=== PATIENT | male | born 1950 | race Caucasian/White ===

== ENCOUNTER 2017-01-15 05:13 | Inpatient (IN) | payer OTHER, MEDICARE ==
--- NOTE | 2017-01-14 08:42 | MH ---
cc: KAITLIN DAVIS DATE OF ADMISSION 01/15/2017 ADMITTING DIAGNOSIS Complete rotator cuff tear of the left shoulder, glenohumeral arthrosis left shoulder, acromioclavicular arthrosis left shoulder, effusion left shoulder, pain left shoulder. HISTORY OF THE PRESENT ILLNESS The patient is a 66-year-old white male who has experienced pain about the left shoulder of at least 6 months duration. He had associated the onset of his symptoms with a lifting type stress when he was picking up luggage and experienced a popping sensation about the left shoulder and the onset of soreness thereafter. He initially conformed to conservative management but noted lingering pain that he exacerbated a few weeks thereafter when he fell out of bed with blunt trauma to the shoulder area occurring. He applied a topical agent with minimal benefit being experienced and later underwent evaluation at a [facility] where initial x-ray studies were without evidence of acute bony abnormality. Mild degenerative changes of the AC joint and the glenohumeral joint were reported. The patient was prescribed physical therapy that he attended on a routine basis without any appreciable benefit of his pain being noted. He also underwent an ultrasound of his left arm with findings of an intact but dislocated long head of the biceps tendon that was felt to be indicative of a partial subscapularis tear. The remaining portion of his cuff was described as being intact. The patient later underwent orthopedic evaluation with an MRI scan of his left shoulder being completed the results of which identified a full-thickness distal supraspinatus tendon tear measuring approximately 2.7 cm in medial to lateral dimension and 1.7 in the anterior posterior dimension. Moderately severe distal infraspinatus and subscapularis tendinosis with severe proximal biceps tendinosis. Moderately severe acromioclavicular joint arthrosis with a moderate size glenohumeral joint effusion communicating with the subacromial bursa. There was a large tear involving the superior, posterior and inferior aspect of the labrum. The patient subsequently presented to the undersigned physician for second opinion evaluation and at that time reported ongoing pain about his left shoulder with limited mobility that was interfering with all activities of daily living. He had been taking ibuprofen in the past that he found to be quite beneficial but had to discontinue the medication secondary to a history of GERD syndrome. He also recently began to take tumeric that he found to afford him some limited benefit with regards to pain relief. Findings and treatment options were reviewed with the patient at that time. The pros and cons of continuing with conservative management versus operative intervention that would involve acromioplasty of the left shoulder with an attempted mini open rotator cuff repair versus reverse shoulder arthroplasty was outlined in detail. The pluses and minuses of each procedure was reviewed. The patient indicated that prior to his office evaluation he had done his own independent research on the internet and was inclined to consider reverse shoulder arthroplasty as being more favorable course of treatment for long-term benefit and expressed his desire to proceed accordingly. In compliance with his wishes he has currently been scheduled for admission in order that the above be accomplished. He is right-hand dominant. PAST MEDICAL HISTORY His past medical history, hospitalizations and surgeries have included: 1. Tonsillectomy. 2. Upper endoscopy. 3. Closed manipulation of a pelvic fracture followed by an extended course of traction therapy. 4. Arthroscopic surgery of the right knee x2. 5. Right total hip arthroplasty. 6. Bilateral cataract excision with subsequent left retinal repair. 7. Dupuytren contracture release of the right hand. 8. Colonoscopy. 9. Excision of warts of the hands bilaterally. 10. Medical management for Campylobacter infection. The patient's medical illnesses include: 1. Dry eye syndrome. 2. Rosacea. 3. Depression. 4. Elevated cholesterol. 5. Gout. 6. Hypertension. 7. Psoriasis. MEDICATIONS His current medications: 1. Restasis 1 drop to each eye twice daily. 2. Doxycycline 100 mg twice daily. 3. Paroxetine 40 mg daily. 4. Niacin 500 mg twice daily. 5. extract 1200 mg twice daily. 6. 25 mg daily. 7. Clobetasol 0.05%. 8. Metoprolol 50 mg twice daily. 9. Terazosin 10 mg daily. 10. Tumeric 2 grams twice daily. 11. Tylenol p.r.n. ALLERGIES THE PATIENT DESCRIBES A DRUG ALLERGY TO COLCHICINE WHICH HAS CAUSED GASTRIC IRRITATIOIN. ZOCOR HAS CAUSED GENERALIZED BODY ACHING. 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 REVIEW OF SYSTEMS He does wear glasses. Denies headache, seizure or syncope. Occasional sinus congestion. There is a history of epistaxis in the past treated by cauterization. Auditory acuity intact. No tinnitus. No bleeding gums or dysphagia. Denies cough, shortness of breath, upper respiratory infection, pneumonia or tuberculosis. No angina. He is medically managed for hypertension. His appetite is good. Bowel movements are regular. No hepatitis, gallbladder disease, ulcers. He has a history of hemorrhoids. No urinary tract infection. No kidney stones. No active prostate disease. Pelvic fracture as described. Psychiatric treatment for depression and posttraumatic stress disorder. Remaining review of systems is unremarkable and noncontributory. FAMILY HISTORY The patient has been for over 40 years. He has no children. His family history is positive for hypertension, diabetes, heart disease, breast and skin cancer and rheumatoid arthritis. 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 He completed a high school education with college credits thereafter. He admits to an intermittent use of tobacco for at least 50 years currently smoking approximately 10 cigarettes per day. Ethanol consumption on a rare basis. PHYSICAL EXAMINATION VITAL SIGNS: Height 6 feet 2 inches, weight 256 pounds. GENERAL: An alert, oriented responsive 66-year-old white male who sits quietly upon the examination table with no obvious distress. HEENT: Head, ears, eyes, nose and throat, pupils are equally round and reactive to light. Extraocular movements full. Sclerae clear. External nares clear. External auditory canals clear. Dental intact. Mucous membranes pink and moist. Pharynx clear. NECK: Supple. Active range of motion without appreciable pain. Carotid pulse palpable bilaterally. Trachea midline. Thyroid without enlargement. LUNGS: Clear to auscultation and percussion. No CVA tenderness. No discomfort throughout the dorsal lumbar spine. HEART: Regular rhythm. No murmur or gallop. ABDOMEN: Soft, nontender. Bowel sounds present. RECTAL: Per primary care physician. EXTREMITIES: Left shoulder, there is mild tenderness about the anterior aspect of the shoulder directly overlying the bicipital groove without palpable deformity. There is limited mobility of the shoulder as the patient actively attempts to elevate his hand above his head level in a forward orientation with limitation observed at approximately 60 degrees of forward flexion. Internal rotation is accomplished to the lumbosacral junction. Cross-arm positioning of left hand onto right shoulder unremarkable. No sensation of crepitation about the glenohumeral joint. Drop arm test is positive. French sign positive. Weakness of both internal and external rotation. Hydroelectric Operator strength intact. Sensory intact. NEUROLOGIC: Cranial nerves II-XII grossly intact. IMPRESSION Complete rotator cuff tear left shoulder, glenohumeral arthrosis left shoulder, acromioclavicular arthrosis left shoulder, effusion left shoulder, pain left shoulder. PLAN Left reverse shoulder arthroplasty. The nature of the planned surgical procedure, the potential complications and risks associated, the expectations of surgery and the consent form were thoroughly reviewed with the patient prior to admission to the hospital. Kolton has indicated his full understanding regarding all of the above and given consent to proceed with treatment as outlined. Medical evaluation and clearance for surgery will be completed by his primary care physician Dr. Kolton Stallings. MD MIREYA More/KK /3:46 PM /8:38 AM
[~2017-01-15] VITALS: Ht 185.4 cm; Wt 118.0 kg
[~2017-01-15 05:13] MED LIST: ARTH650T6 PO; CHLO25TA2 PO; CLOB0.055 TOPICAL; CURCPOW PO; DOXY100C35 PO; FLUO40CA PO; METO50TA PO; NIAC500T67 PO; PANT40TA3 PO; RANI150T PO; REST0.05 EACH EYE; TERA2CAP3 PO; [UNRECOGNIZED DRUG - CODE] PO
[2017-01-15] MEDS ORDERED: CHLORHEXIDINE GLUCONATE 2 % 1 PACK (2 CLOTHS) TOPICAL PRN (05:45)
[2017-01-15] MEDS ORDERED: POVIDONE IODINE 7.5% SCRUB 118 ML BOTTLE TOPICAL SCH (05:45)
[2017-01-15] MEDS ORDERED: SODIUM CHLORID 0.9% 500 ML IV PRN (05:45)
[2017-01-15] MEDS ORDERED: INSULIN HUMAN REGULAR 1,000 UNITS/10 ML VIAL SQ PRN (05:45)
[2017-01-15] MEDS ORDERED: METOPROLOL TARTRATE 25 MG TAB PO PRN (05:45)
[2017-01-15] MEDS ORDERED: SOUR1000 PO (05:57)
[2017-01-15] MEDS: POVIDONE IODINE 5% (ANTISEPSIS KIT) 4 APPLICATIONS EACH NARE PRN ×2 (06:00→11:11)
[2017-01-15] MEDS ORDERED: ceFAZolin INJ 1,000 MG VIAL ONE (06:17)
[2017-01-15] MEDS ORDERED: FAMOTIDINE 20 MG/2 ML VIAL ONE (06:37)
[2017-01-15] MEDS ORDERED: ACETAMINOPHEN 1000 MG/100 ML 100 ML IV ONE (06:37)
[2017-01-15] MEDS: LACTATED RINGER'S 1000 ML IV PRN ×2 (06:45→11:11)
[2017-01-15] MEDS: ceFAZolin 2 GM PREMIX 50 ML IV SCH ×2 (06:47→11:11)
[2017-01-15] MEDS: TRANEXAMIC ACID 1 GM PRIOR TO PROCEDURE IV SCH ×4 (07:11→11:11)
[2017-01-15] MEDS ORDERED: TRANEXAMIC ACID 1 GM POST-OP IV SCH ×2 (09:00)
[2017-01-15] MEDS ORDERED: Post-op Orders (for Pharmacy) MISC XX ONE (09:56)
[2017-01-15] MEDS ORDERED: DO NOT ADM ANY ANTICOAGULANT DRUGS PRN (09:58)
[2017-01-15] MEDS ORDERED: BUPIVACAINE HCL PF 0.5% 30 ML VIAL ONE (09:58)
[2017-01-15] MEDS ORDERED: ACETAMINOPHEN/HYDROcodone 325 MG/5 MG TAB PO PRN (10:15)
[2017-01-15] MEDS ORDERED: ZOLPIDEM TARTRATE 5 MG TAB PO PRN (10:15)
[2017-01-15] MEDS ORDERED: TRANEXAMIC ACID INJ 1,000 MG in SODIUM CHLORIDE 0.9% INJ 100 ML IV SCH (10:15)
[2017-01-15] MEDS ORDERED: BISACODYL 10 MG SUPP RECTAL PRN (10:15)
[2017-01-15] MEDS ORDERED: SODIUM CHLORIDE 0.9% FLUSH 10 ML FLUSH IV FLUSH PRN (10:15)
[2017-01-15] MEDS ORDERED: NALOXONE HCL 0.4 MG/ML AMP IV PUSH PRN (10:15)
[2017-01-15] MEDS ORDERED: MISCELLANEOUS PHARMACY INFORMATION XX ONE (10:15)
[2017-01-15] MEDS ORDERED: MORPHINE SULFATE 30 MG/30 ML PCA IV SCH (10:15)
[2017-01-15] MEDS ORDERED: ONDANSETRON HCL 4 MG/2 ML VIAL IVP PRN (10:15)
[2017-01-15] MEDS ORDERED: *morphine SULFATE 8 MG/ML PERIprocedure ONLY ONE (10:30)
--- NOTE | 2017-01-15 10:55 | MP ---
cc: KAITLIN HENNING DATE OF SURGERY 01/15/2017 PREOPERATIVE DIAGNOSIS A complete rotator cuff tear of the left shoulder with glenohumeral arthrosis and acromioclavicular arthrosis, effusion left shoulder and pain of the left shoulder POSTOPERATIVE DIAGNOSIS A complete rotator cuff tear of the left shoulder with glenohumeral arthrosis and acromioclavicular arthrosis, effusion left shoulder and pain of the left shoulder PROCEDURE Left reverse shoulder arthroplasty. SURGEON Kaitlin Henning MD ANESTHESIA General endotracheal INDICATIONS A 66-year-old white male with left shoulder pain of at least six months duration. The onset of his symptoms occurred with a lifting type stress when he was picking up luggage and experienced a popping sensation about the left shoulder with the onset of pain thereafter. He initially conformed to conservative management, but noted lingering discomfort that was exacerbated when he fell out of bed with blunt trauma to the shoulder area occurring. He applied a topical agent with minimal benefit experienced and later underwent evaluation at the [facility] facility where x-ray studies were without evidence of acute bony abnormality. Mild degenerative changes of the AC joint and glenohumeral joint were reported. The patient was prescribed physical therapy that he attended on a routine basis without any appreciable benefit of his pain being noted. He also underwent an ultrasound of his left arm with findings being intact, but dislocated long head of the biceps tendon was felt to be indicative of a partial subscapularis tear. The remaining portion of the cuff was described as being intact. The patient later underwent orthopedic evaluation with an MRI scan of the shoulder being completed the results of which identified a full-thickness distal supraspinatus tendon tear measuring approximately 2.7 cm in medial to lateral dimension and 1.7 in anterior to posterior dimension, moderately severe distal infraspinatus and subscapularis tendinosis with severe proximal biceps tendinosis and moderately severe acromioclavicular joint arthrosis with a moderate size glenohumeral joint effusion communicating with the subacromial bursa. There was a large tear involving the superior, posterior, and inferior aspect of the labrum. The patient subsequently was seen by the undersigned physician for a second opinion evaluation and at that time reported ongoing pain about his left shoulder with limited mobility that was interfering with all activities of daily living. He had been taking ibuprofen that he found to be beneficial, but had to discontinue the medication secondary to a history of gastroesophageal reflux disease syndrome. He also recently began to take tumeric that he found to afford him some limited benefit. Findings and treatment options were reviewed with the patient at that time. The pros and cons of continuing with conservative management versus operative intervention that would involve an acromioplasty of the left shoulder was then attempted and an open rotator cuff repair versus reverse shoulder arthroplasty was outlined. The pluses and minuses of each procedure was reviewed. The patient indicated that prior to his office evaluation, he had done his own independent research on the internet and was inclined to consider reverse shoulder arthroplasty as being a more favorable course of treatment for long-term benefit and expressed his desire to proceed accordingly. In compliance with his wishes, he was currently admitted to the hospital in order that the above be accomplished. FORMAT Following the induction of satisfactory general anesthesia by endotracheal intubation as completed per the Department of Anesthesia, the patient was positioned upon the operating table in a modified beach-chair configuration. The left shoulder and upper extremity proper were isolated with a U-drape thereafter being prepped with Betadine solution and draped into a sterile field in the routine manner. Prior to initiation of the actual procedure, the standard time-out protocol was completed. All parameters were appropriately addressed and confirmed by operating room personnel. A standard anterior approach to the shoulder was initiated through a sharp skin incision overlying the deltopectoral interval being extended from the inferior margin of the clavicle to the axillary crease. The incision was developed through underlying subcutaneous tissue with hemostasis maintained by electrocautery. By deepening dissection, the cephalic vein was identified distally and the interval was developed in a distal to proximal orientation with the vein being reflected in a lateral orientation with the deltoid musculature. Digital release of subdeltoid adhesions was completed and the shoulder thereafter maintained in a slightly externally rotated orientation. The biceps tendon was identified and released proximally. A limited release of the pectoralis major insertion was accomplished and thereafter the biceps tendon was tenodesed to the stump of the pectoralis tendon, the excess portion being excised. As the shoulder was maintained in an externally rotated orientation, the three sister circumflex vessels were identified, clamped and coagulated. Thereafter, the subscapularis tendon was released in a superior to inferior orientation along the orientation of the anatomical neck of the humerus. The more medial segment of the tendon was tagged with #1 Tycron suture. As the tendon was released, the humeral head was delivered into the wound facilitating a 360 degree exposure. A significant central articular full-thickness cartilaginous defect was readily identified. Superiorly adjacent to the bicipital groove, an entry point was initiated into the humeral shaft and sequential rasping was accomplished from 7-14 mm. Broaching followed in a similar manner through 13 mm with the 13 mm stem determined to be a satisfactory fit. The covering plate was positioned over the proximal humerus and attention was thereafter redirected to the glenoid. Retractors were placed anterior, posterior, and superior facilitating exposure. The glenoid labrum and remnants of the superior middle and inferior glenohumeral ligaments were resected. The residual stump of the biceps tendon was resected in a similar manner. With 360 degree orientation exposure of the glenoid, hash boogie were placed from the 12 to 06 o'clock position and in the 3 to 9 o'clock position facilitating central orientation of the glenoid. A guide pin was placed in this central target in a slight 10 degrees inferior tilt utilizing the glenoid guide. With the guide pin maintained, the step-down reamer was passed creating a central peg hole. Limited resection along the inferior margin of the glenoid was accomplished and thereafter a 25 mm mini baseplate was firmly seated. Depth measurement was accomplished facilitating placement of a 35 mm central screw. Peripheral locking screws were placed utilizing 25 mm locking screws superiorly and inferiorly and 15 mm screws anteriorly and posterior. With the baseplate firmly secured in place, a 36 mm glenosphere was attached with maximum inferior offset and firmly seated onto the baseplate. Attention returned to the proximal humerus with a [address], a trial reduction was completed utilizing a 44 x 36 mm trial bearing insert. The shoulder was reduced and carried through a passive range of motion with stability being demonstrated throughout the arc of mobility. An open dislocation was completed. The trial humeral components were removed. The canal was thoroughly irrigated and dried. One additional #1 Tycron suture was passed through the proximal humerus and thereafter the 13 mm mini humeral stem was firmly seated to which a 44-mm humeral tray with a 44 x 36-mm humeral bearing insert attached. An open reduction completed and repeat range of motion again noted stability as previously described. Final irrigation was accomplished with hemostasis maintained. The subscapularis tendon was repaired with #1 Tycron suture. The deltopectoral interval was thereafter closed with a 0 Vicryl suture and the remaining portion of the wound was closed in layers in the routine manner skin margins being reapproximated with a running subcuticular 3-0 Vicryl suture over which Steri-Strips were applied. A dry sterile dressing was placed. The extremity being supported in an arm sling, anesthesia was discontinued. The patient was thus transferred to a hospital bed and returned to recovery room in satisfactory condition having tolerated his operative procedure well. Estimated blood loss was approximately 100 cc. All implants were of the [employer] nuclear control operator. MD MIREYA More/UNIQUE /10:01 AM /10:21 AM
[2017-01-15] MEDS: DEXT 5%-NACL 0.45% 1000 ML INJ 1,000 ML IV SCH ×2 (11:00→21:33)
--- NOTE | 2017-01-15 11:09 | RADRPT ---
EXAM DATE/TIME: 01/15/2017 10:34 [facility] COMPARISON: No previous studies available for comparison. INDICATIONS : Total left shoulder. MEDICAL HISTORY : None. SURGICAL HISTORY : None. ENCOUNTER: Initial ACUITY: 1 day PAIN SCORE: Non-responsive. LOCATION: Left shoulder FINDINGS: Single anterior view of the left shoulder shows reverse configuration total arthroplasty that appears intact and normally aligned. No fracture is seen. CONCLUSION: No acute abnormality demonstrated status post left shoulder arthroplasty. Ricardo Irizarry MD on January 15, 2017 at 11:07 Board Certified Radiologist. This report was verified electronically.
[2017-01-15 12:50] VITALS: BP 110/66; PULSE 70; RESP 18; TEMP 97.6; O2SAT 94
[2017-01-15] MEDS: PCA - TOTAL MG MORPHINE DELIVERED PER SHIFT SCH ×2 (15:05→21:34)
[2017-01-15 16:00] VITALS: BP 122/70; PULSE 73; RESP 18; TEMP 96.4; O2SAT 91
--- NOTE | 2017-01-15 18:05 | PD.CONS ---
HPI Service [facility] Hospitalists Consult Requested By Dr. Henning Reason for Consult Medical Management Primary Care Physician Alberto Garcia MD Diagnoses: History of Present Illness Written by Ari Aguirre, acting as scribe for Dr. Covarrubias on 01/15/17 at 17: 52. Patient is a 66-year-old male with primary medical history of depression, HTN, HLD, psoriasis, dry eyes who came in to the hospital for an elective left shoulder surgery for complete rotator cuff tear of the left shoulder, glenohumeral atherosis left shoulder, acromioclavicular arthrosis left shoulder , effusion left shoulder, pain left shoulder. Patient is status post Left reverse shoulder arthroplasty by Dr. Henning. Laying in bed. States that he had vomited earlier after eating but now he feels okay. Denies any pain or discomfort. Reports his oxygen went down to its Y he is on 3 L nasal cannula and on the O2 sat monitoring but now it's back up to 96%. Denies SOB/ dyspnea. Denies chest pain, palpitations, headaches, dizziness. Denies fevers, chills, diarrhea. Denies dysuria. Review of Systems Except as stated in HPI: all other systems reviewed are Neg Past Family Social History Allergies: Coded Allergies: colchicine (Verified Allergy, Unknown, 01/02/17) simvastatin (Verified Allergy, Unknown, 01/02/17) Past Medical History Dry eyes Psoriasis Gout HTN HLD Clinical depression Past Surgical History Right finger trigger release Colonoscopy with 29 polyps removed Right knee surgery 2 Reported Medications Reported Meds & Active Scripts Active Restasis Opth 0.05% (Cyclosporine Opth 0.05%) 0.05% Emul 1 Drop EACH EYE BID Fluoxetine (Fluoxetine HCl) 40 Mg Cap 40 Cap PO DAILY Reported Tart Melvin Extract (Sour Melvin Extract) 1,000 Mg Capsule 1 Tab PO BID Arthritis Pain Reliever ER 8 HR (Acetaminophen) 650 Mg Tab 650 Mg PO Q8HR PRN Curcumin (Turmeric (Curcuma Longa) (Bulk) 95 % Pow PO BID Ranitidine (Ranitidine HCl) 150 Mg Tab 150 Mg PO DAILY Niacin (Niacinamide) 500 Mg Tablet 1 Tab PO BID Doxycycline Monohydrate (Doxycycline (Monohydrate)) 100 Mg Cap 1 Cap PO BID Terazosin (Terazosin HCl) 2 Mg Cap 4 Mg PO DAILY Clobetasol Topical (Clobetasol Propionate) 0.05% Cream 1 Applic TOPICAL BID Pantoprazole (Pantoprazole Sodium) 40 Mg Tab 40 Mg PO DAILY Metoprolol Tartrate 50 Mg Tab 50 Mg PO BID Chlorthalidone 25 Mg Tab 25 Mg PO DAILYAC Chlorthalidone 25 Mg Tab 12.5 Mg PO HS Active Ordered Medications Current Medications Medications (Trade) Dose Ordered Sig/Rhona Route Start Time Stop Time Status Last Admin (Lopressor) 25 mg CAUSTIC PLANT WORKER PRN PO 01/15/17 05:45 01/18/17 05:44 (Betadine 5% Antisepsis Kit) 1 applic CAUSTIC PLANT WORKER PRN EACH NARE 01/15/17 05:45 01/18/17 05:44 01/15/17 06:00 (Chlorhexidine 2% Cloth) 3 pack CAUSTIC PLANT WORKER PRN TOPICAL 01/15/17 05:45 01/18/17 05:44 01/15/17 05:30 (NovoLIN R INJ) See Protocol Table ... CAUSTIC PLANT WORKER PRN SQ 01/15/17 05:45 01/18/17 05:44 (Betadine 7.5% Scrub) 1 applic ONCE TOPICAL 01/15/17 05:45 01/18/17 05:44 Dextrose/Sodium Chloride 1,000 ml @ 125 mls/hr Q8H IV 01/15/17 12:00 01/15/17 11:00 (NS Flush) 2 ml UNSCH PRN IV FLUSH 01/15/17 10:15 (NS Flush) 2 ml BID IV FLUSH 01/15/17 21:00 Cefazolin Sodium 1000 mg/Sodium Chloride 100 ml @ 200 mls/hr Q6H IV 01/15/17 12:00 01/16/17 00:29 01/15/17 12:15 (Xarelto) 10 mg Q24H PO 01/16/17 09:00 (George 5-325 Mg) 1 tab Q4H PRN PO 01/15/17 10:15 (George 5-325 Mg) 2 tab Q4H PRN PO 01/15/17 10:15 (Zofran Inj) 4 mg Q6H PRN IVP 01/15/17 10:15 (Ambien) 5 mg HS PRN PO 01/15/17 10:15 (Dulcolax Supp) 10 mg DAILY PRN RECTAL 01/15/17 10:15 (Narcan Inj) 0.4 mg UNSCH PRN IV PUSH 01/15/17 10:15 01/17/17 10:14 (Morphine 1 Mg/ ml INTEGRITY ENGINEER) 30 mg UNSCH IV 01/15/17 10:15 01/17/17 10:14 01/15/17 12:18 INTEGRITY ENGINEER Dosage Infused (Pha) 1 Q8HR .XX 01/15/17 14:00 01/16/17 10:14 01/15/17 15:05 Miscellaneous Information ALL NURSING DEPARTME... UNSCH PRN .XX 01/15/17 09:58 01/16/17 09:57 Family History Father of a heart disease, but also had kidney cancer Uncle on the father's side had colon cancer Mother has breast cancer Social History Denies alcohol use Smokes 10 cigarettes per day Denies illicit drug use Physical Exam Vital Signs Vital Signs Date Time Temp Pulse Resp B/P (MAP) Pulse Ox O2 Delivery O2 Flow Rate FiO2 01/15/17 15:05 16 01/15/17 12:50 97.6 70 18 110/66 (81) 94 01/15/17 12:18 16 01/15/17 12:00 62 16 103/61 (75) 97 Nasal Cannula 2 01/15/17 11:15 62 16 97/53 (68) 98 Nasal Cannula 2 01/15/17 11:00 62 16 92/50 (64) 96 Nasal Cannula 2 01/15/17 10:45 62 16 94/53 (67) 97 Nasal Cannula 2 01/15/17 10:30 62 16 114/54 (74) 97 Nasal Cannula 2 01/15/17 10:15 64 16 132/60 (84) 97 Nasal Cannula 2 01/15/17 10:00 98.3 62 16 146/65 (92) 100 Nasal Cannula 2 01/15/17 05:45 98.1 61 20 110/66 (81) 98 Physical Exam GENERAL: This is a well-nourished, well-developed patient, in no apparent distress. SKIN: Warm and dry. HEAD: Normocephalic. EYES: Pupils equal round and reactive. Extraocular motions intact. No scleral icterus. No injection or drainage. ENT: Nose without bleeding. Throat without erythema. Uvula midline. Airway patent. NECK: Trachea midline. Supple. CARDIOVASCULAR: Regular rate and rhythm without murmurs, gallops, or rubs. RESPIRATORY: Diminished Bases. No wheezes, rales, or rhonchi. GASTROINTESTINAL: Abdomen soft, non-tender, nondistended. Bowel sounds hypoactive. MUSCULOSKELETAL: Extremities without clubbing, cyanosis, or edema. Left upper extremity on sling. NEUROLOGICAL: Awake and alert. Cranial nerves II through XII intact. Motor and sensory grossly within normal limits. Normal speech. Assessment and Plan Problem List: (1) Hyperlipidemia ICD Code: E78.5 - Hyperlipidemia Status: Acute (2) BPH (benign prostatic hyperplasia) ICD Code: N40.0 - Benign prostate hyperplasia Status: Acute (3) Psoriasis ICD Code: L40.9 - Psoriasis Status: Acute (4) Depression ICD Code: F32.9 - Depression Status: Acute (5) Gout ICD Code: M10.9 - Gout Status: Acute (6) Hypertension ICD Code: I10 - Hypertension Status: Acute (7) Family history of colon cancer requiring screening colonoscopy ICD Code: Z80.0 - Family history of malignant neoplasm of digestive organs (8) Tobacco use ICD Code: Z72.0 - Tobacco use Status: Acute Assessment and Plan Patient is a 66-year-old male with primary medical history of depression, HTN, HLD, psoriasis, dry eyes who came in to the hospital for an elective left shoulder surgery for complete rotator cuff tear of the left shoulder, glenohumeral atherosis left shoulder, acromioclavicular arthrosis left shoulder , effusion left shoulder, pain left shoulder. Patient is status post Left reverse shoulder arthroplasty by Dr. Henning. Status post left reverse shoulder arthroplasty - Managed by Dr. henning, orthopedics - Pain management IV INTEGRITY ENGINEER, George - PT/OT to eval and treat HTN chronic HLD - Continue with home medication metoprolol 50 mg twice a day, Terazosin 4 mg daily, Chlorthalidone 12.5mg QHS/25mg daily - Vasotec when necessary - Monitor BP trend Depression - Continue medication fluoxetine Emphysema Tobacco use - Desaturation 70s 80s with activity as per RN. O2 nasal cannula from 4 L now to 3 L. - O2 nasal cannula when necessary titrate to O2 sat greater than 90% patient is a nonsmoker may tolerate 88% O2 sat - Nicotine patch. Counseled cessation DVT prop Xarelto Thank you for this consultation. We will transfer attending name to family medicine Dr. Shabana Willis. Code Status Full code Discussed Condition With Patient, nursing This note was transcribed by scribe [Ari Aguirre,]. I, Dr. Linda Covarrubias personally performed the history, physical exam, and medical decision making; and confirmed the accuracy of the information in the transcribed note. Authenticated by Dr. Linda Covarrubias on 01/15/17 at 18:47. Ari Henson Jan 15, 2017 18:05 Linda Covarrubias MD Jan 15, 2017 18:47
[2017-01-15] MEDS ORDERED: ENALAPRILAT 1.25 MG/ML VIAL IV PUSH PRN (18:15)
[2017-01-15] MEDS: NICOTINE 14 MG/24 HR PATCH T-DERMAL SCH (20:00)
[2017-01-15 20:11] VITALS: BP 121/72; PULSE 74; RESP 18; TEMP 96; O2SAT 96
[2017-01-15] MEDS ORDERED: CHLORTHALIDONE 12.5 MG PO SCH (21:00)
[2017-01-15] MEDS ORDERED: CLOBETASOL PO SCH (21:00)
[2017-01-15] MEDS: SODIUM CHLORIDE 0.9% FLUSH 10 ML FLUSH IV FLUSH SCH (21:00)
[2017-01-15] MEDS: METOPROLOL TARTRATE 50 MG TAB PO SCH (21:33)
[2017-01-16] VITALS (10 sets, daily range): BP systolic 116–139; BP diastolic 55–75; PULSE 71–85; RESP 16–18; TEMP 97.1–99.8; O2SAT 90–98
--- NOTE | 2017-01-16 00:14 | PD.CONS ---
HPI Service Family Medicine Consult Requested By Reason for Consult management of chronic medical issues Primary Care Physician Huseyin Caldwell , R3 MD Haylie History of Present Illness Patient is a 66-year-old male with significant PMHx of depression, HTN, HLD who came to the hospital for elective surgery repair of a complete rotator cuff tear of the left shoulder. Left reverse shoulder arthroplasty was completed on 01/15/[address] Henning. Pt states his shoulder pain is well controlled. Pt reports 1 episode of vomiting earlier in the day after eating his first meal. Currently feels fine and denies nausea, abd pain or diarrhea. Pt also reports a mild cough and scratchy throat. He reports having to strain during urination but stated he was informed by his nurse that his urinary output was adequate. Denies CP, SOB, or dysuria. (Chris Pritchard MD, R1) Review of Systems Constitutional: DENIES: Fever Respiratory: COMPLAINS OF: Cough Cardiovascular: DENIES: Chest pain Gastrointestinal: DENIES: Abdominal pain Genitourinary: DENIES: Dysuria (Chris Pritchard MD, R1) Past Family Social History Past Medical History Dry eyes Psoriasis Gout HTN HLD Clinical depression Past Surgical History Right finger trigger release Colonoscopy with 29 polyps removed Right knee surgery 2 (Chris Pritchard MD, R1) Allergies: Coded Allergies: colchicine (Verified Allergy, Unknown, 01/02/17) simvastatin (Verified Allergy, Unknown, 01/02/17) Family History Father- heart disease and kidney cancer Paternal uncle- colon cancer Mother-breast cancer Social History Denies alcohol or illicit drug use Smokes 10 cigarettes per day (Chris Pritchard MD, R1) Physical Exam Vital Signs Vital Signs Date Time Temp Pulse Resp B/P (MAP) Pulse Ox O2 Delivery O2 Flow Rate FiO2 01/15/17 20:11 96.0 74 18 121/72 (88) 96 01/15/17 19:09 Nasal Cannula 3.00 01/15/17 16:00 96.4 73 18 122/70 (87) 91 01/15/17 15:05 16 01/15/17 12:50 97.6 70 18 110/66 (81) 94 01/15/17 12:18 16 01/15/17 12:00 62 16 103/61 (75) 97 Nasal Cannula 2 10/25/17 11:15 62 16 97/53 (68) 98 Nasal Cannula 2 01/15/17 11:00 62 16 92/50 (64) 96 Nasal Cannula 2 01/15/17 10:45 62 16 94/53 (67) 97 Nasal Cannula 2 01/15/17 10:30 62 16 114/54 (74) 97 Nasal Cannula 2 01/15/17 10:15 64 16 132/60 (84) 97 Nasal Cannula 2 01/15/17 10:00 98.3 62 16 146/65 (92) 100 Nasal Cannula 2 01/15/17 05:45 98.1 61 20 110/66 (81) 98 Physical Exam GENERAL: This is a well-nourished, well-developed patient, in no apparent distress laying comfortably in bed. SKIN: No rashes, ecchymoses or lesions. Cool and dry. HEAD: Atraumatic. Normocephalic. No temporal or scalp tenderness. EYES: Pupils equal round and reactive. Extraocular motions intact. No scleral icterus. No injection or drainage. ENT: Nose without bleeding, purulent drainage or septal hematoma. Throat without erythema, tonsillar hypertrophy or exudate. Uvula midline. Airway patent. NECK: Trachea midline. No JVD or lymphadenopathy. Supple, nontender, no meningeal signs. CARDIOVASCULAR: Normal s1 and s2. Regular rate and rhythm without murmurs, gallops, or rubs. RESPIRATORY: Wheezing noted on R upper lobes anteriorly. Rest of lung exam clear to auscultation. No rales or rhonchi. GASTROINTESTINAL: Abdomen soft, non-tender, nondistended. No hepato-splenomegaly , or palpable masses. No guarding. MUSCULOSKELETAL: Extremities without clubbing, cyanosis, or edema. Left shoulder on sling. No calf tenderness. Negative Homans sign bilaterally. +2 PD Right foot, +1 PD Left foot. NEUROLOGICAL: Awake and alert. Cranial nerves II through XII intact. Motor and sensory grossly within normal limits. Five out of 5 muscle strength in all muscle groups. Normal speech. (Chris Pritchard MD, R1) Imaging Last 48 hours Impressions Shoulder X-Ray 01/15/17 0000 Signed Impressions: Service Date/Time: Sunday, January 15, 2017 10:34 - CONCLUSION: No acute abnormality demonstrated status post left shoulder arthroplasty. Ricardo Irizarry MD (Chris Pritchard MD, R1) Assessment and Plan Assessment and Plan Patient is a 66-year-old male with significant PMHx of depression, HTN, HLD who came to the hospital for elective surgery (complete rotator cuff tear repair of the left shoulder). Patient is s/p Left reverse shoulder arthroplasty by Dr. Henning. Pain is well controlled. VS WNL. S/p Left reverse shoulder arthroplasty -Being managed by Dr. Henning -IV RESEARCH AND DEVELOPMENT TECHNICIAN and norco po Q4h PRN for pain Patient had 1 episode of vomiting after first meal -c/w zofran 4mg IV Q6h PRN Patient mentioned slight straining with urination can be likely due to morphine medication given for pain -Pt I/O = 1840ml/ 350 (void) thus far -will continue to monitor I/O Slight wheezing noted on Right upper lobe on exam -order placed for duoneb Q6h to be given while awake Code Status Full code Discussed Condition With Dr. Freeman (Chris Pritchard MD, R1) Attending Attestation Patient seen and examined. Case reviewed and discussed with the resident team. Agree with plan of care as discussed with me and documented in the resident note. (Shabana Willis MD) Problem List: (1) Hypertension ICD Codes: I10 - Hypertension Status: Chronic Plan: -c/w metoprolol 50mg po BID (2) Depression ICD Codes: F32.9 - Depression Status: Chronic Plan: -c/w fluoxetine 40mg po QD (3) GERD (gastroesophageal reflux disease) ICD Codes: K21.9 - Gastroesophageal reflux disease Status: Chronic Plan: -c/w pantoprazole 40mg po QD (4) Tobacco abuse ICD Codes: Z72.0 - Tobacco use Status: Chronic Plan: -c/w nicotine patch (5) Nutrition, metabolism, and development symptoms ICD Codes: R63.8 - Other symptoms and signs concerning food and fluid intake Plan: Fluids:125mls/hr Electrolytes: replete as needed DVT ppx: xerelto mg Q24h starting 01/16 GI ppx: pantoprazole 40mg QD (Chris Pritchard MD, R1) Problem Qualifiers (1) Hypertension: Qualified Codes: I10 - Essential (primary) hypertension Chris Pritchard MD, R1 Jan 16, 2017 00:14 Shabana Willis MD Jan 16, 2017 15:23
[2017-01-16] MEDS: PCA - TOTAL MG MORPHINE DELIVERED PER SHIFT SCH (06:00)
[2017-01-16] MEDS ORDERED: XARE10TA PO (06:27)
[2017-01-16] MEDS ORDERED: HYDR-3516 PO (06:27)
--- NOTE | 2017-01-16 06:32 | HHI.FF ---
Face to Face Verification Diagnosis: (1) DJD of left shoulder Physical Therapy Gait training Right LE Weight Bearing: WB as tolerated Left LE Weight Bearing: WB as tolerated Occupational Therapy Left UE Weight Bearing: WB as tolerated Left UE Range of Motion: Active ROM Additional Instructions standard TSA protocol; no external rotation > 45 degrees for initial six weeks post-op then progress as tolerated. Arm sling worn on prn basis Nursing Dressing Changes: Daily dressing change I have seen patient Kolton Beltran on 01/16/17. My clinical findings support the need for the requested home health care services because: Limited ability to care for self High risk of falls I certify that my clinical findings support that this patient is homebound because: Post-op weakness Unsteady gait/balance Unsafe to leave home unassisted Jose Henning MD Jan 16, 2017 06:31
[2017-01-16] MEDS ORDERED: PATIENT OWN MEDICATION (Chlorthalidone 25 MG) PO SCH (08:00)
[2017-01-16] MEDS: RESP: ALBUTEROL 2.5 MG/IPRATROPIUM 0.5 MG NEB (SCH) NEB ×3 (08:44→21:23)
[2017-01-16] MEDS: REMOVE OLD PATCH T-DERMAL SCH (09:00)
[2017-01-16] MEDS: TERAZOSIN HCL 1 MG CAP PO SCH (09:12)
[2017-01-16] MEDS: FLUoxetine HCL 20 MG CAP PO SCH (09:12)
[2017-01-16] MEDS: RIVAROXABAN 10 MG TAB PO SCH (09:12)
[2017-01-16] MEDS: NICOTINE 14 MG/24 HR PATCH T-DERMAL SCH (09:12)
[2017-01-16] MEDS: SODIUM CHLORIDE 0.9% FLUSH 10 ML FLUSH IV FLUSH SCH ×2 (09:13→20:56)
[2017-01-16] MEDS: METOPROLOL TARTRATE 50 MG TAB PO SCH ×2 (09:13→20:54)
[2017-01-16] MEDS: PANTOPRAZOLE SOD 40 MG DELAYED RELEASE TAB PO SCH (09:13)
[2017-01-16] MEDS: ACETAMINOPHEN/HYDROcodone 325 MG/5 MG TAB PO PRN ×4 (09:18→23:10)
[2017-01-16] MEDS ORDERED: BISACODYL 10 MG SUPP RECTAL PRN (09:30)
[2017-01-16] MEDS ORDERED: LACTULOSE SYRUP 20 GM/30 ML CUP PO PRN (09:30)
[2017-01-16 09:58] LABS: HEMATOCRIT 43.9 % (39.0-51.0)
[2017-01-16 09:59] LABS: REVIEW FLAG FINAL
[2017-01-16] MEDS: DEXT 5%-NACL 0.45% 1000 ML INJ 1,000 ML IV SCH ×2 (12:00→20:00)
[2017-01-16] MEDS: DOCUSATE SODIUM 50 MG/SENNA 8.6 MG TAB PO SCH ×2 (13:27→20:54)
--- NOTE | 2017-01-16 13:50 | HHI.FPPN ---
Subjective Remarks Patient seen, examined and discussed with the medicine and a team History and physical for this admission done by Dr. henning was reviewed. This is a 66-year-old male who was admitted for elective surgical repair of complete left rotator cuff tear and left reverse shoulder arthroplasty on January 15, 2017. After the first postop meal he did have some vomiting but has had no vomiting since. His shoulder pain is well controlled with NUTRITION DIRECTOR and the nurse is present to give him his first oral pain medication. He no longer has nausea, abdominal pain or diarrhea. He did have to strain a bit during urination postoperatively but his urine output has been good and he is no longer straining to void. This morning, he denies any chest pain, shortness of breath and no dysuria. Reports some occasional wheezing particularly when he is recumbent. Admits he is not really been using his incentive spirometer. He is able to ambulate to the bathroom without difficulty. Objective Vitals Vital Signs Date Time Temp Pulse Resp B/P (MAP) Pulse Ox O2 Delivery O2 Flow Rate FiO2 01/16/17 11:49 99.8 79 16 139/65 (89) 93 01/16/17 08:44 90 Nasal Cannula 2.00 01/16/17 07:46 99.2 75 16 124/65 (84) 92 01/16/17 04:14 97.3 74 18 122/59 (80) 95 01/16/17 00:20 97.1 76 18 134/59 (84) 95 01/15/17 22:30 Nasal Cannula 2.00 01/15/17 20:11 96.0 74 18 121/72 (88) 96 01/15/17 19:09 Nasal Cannula 3.00 01/15/17 16:00 96.4 73 18 122/70 (87) 91 01/15/17 15:05 16 I/O 01/15/17 01/15/17 01/15/17 01/16/17 01/16/17 01/16/17 07:00 15:00 23:00 07:00 15:00 23:00 Intake Total 1600 ml 240 ml 2106 ml 206 ml Output Total 100 ml 350 ml 350 ml Balance 1500 ml -110 ml 1756 ml 206 ml Intake Oral 240 ml 240 ml IV Total 200 ml 1866 ml 206 ml Other 1400 ml Output Urine Total 350 ml 350 ml Estimated Blood Loss 100 ml # Bowel Movements 0 0 Result Diagram: 01/16/17 0808 Other Results Laboratory Tests Test 01/16/17 08:08 Hemoglobin 14.7 GM/DL Hematocrit 43.9 % Imaging Last Impressions Shoulder X-Ray 01/15/17 0000 Signed Impressions: Service Date/Time: Sunday, January 15, 2017 10:34 - CONCLUSION: No acute abnormality demonstrated status post left shoulder arthroplasty. Ricardo Irizarry MD Objective Remarks Alert, pleasant, interactive, no acute distress. Conjunctiva and sclerae clear Neck is supple without lymphadenopathy Heart regular rate and rhythm Expiratory wheeze on the right which clears with energetic cough Abdomen protuberant with active bowel sounds Extremities show dressing intact over the left shoulder, no cyanosis clubbing or edema, moving the fingers of the left hand well. A/P Assessment and Plan Patient is a 66-year-old male with significant PMHx of depression, HTN, HLD who came to the hospital for elective surgery (complete rotator cuff tear repair of the left shoulder). Patient is s/p Left reverse shoulder arthroplasty by Dr. Henning. Pain is well controlled. VS WNL. S/p Left reverse shoulder arthroplasty -Being managed by Dr. Henning -IV NUTRITION DIRECTOR and norco po Q4h PRN for pain Patient had 1 episode of vomiting after first meal -c/w zofran 4mg IV Q6h PRN Patient mentioned slight straining with urination can be likely due to morphine medication given for pain -Pt I/O = 1840ml/ 350 (void) thus far -will continue to monitor I/O Slight wheezing noted on Right upper lobe on exam -order placed for duoneb Q6h to be given while awake Discharge Planning Anticipate discharge January 17, 2017. Attending Attestation Patient seen and examined. Case reviewed and discussed with the resident team. Agree with plan of care as discussed with me and documented in the resident note. Problem List: (1) Hypertension ICD Codes: I10 - Hypertension Status: Chronic Plan: -c/w metoprolol 50mg po BID (2) Depression ICD Codes: F32.9 - Depression Status: Chronic Plan: -c/w fluoxetine 40mg po QD (3) GERD (gastroesophageal reflux disease) ICD Codes: K21.9 - Gastroesophageal reflux disease Status: Chronic Plan: -c/w pantoprazole 40mg po QD (4) Tobacco abuse ICD Codes: Z72.0 - Tobacco use Status: Chronic Plan: -c/w nicotine patch -Encouraged use of incentive spirometer 10 times an hour while awake and he was taught in its use. -Encourage smoking cessation (5) Nutrition, metabolism, and development symptoms ICD Codes: R63.8 - Other symptoms and signs concerning food and fluid intake Plan: Fluids:125mls/hr Electrolytes: replete as needed DVT ppx: xarelto mg Q24h starting 01/16 GI ppx: pantoprazole 40mg QD Problem Qualifiers (1) Hypertension: Qualified Codes: I10 - Essential (primary) hypertension Shabana Willis MD Jan 16, 2017 13:50
[2017-01-16] MEDS ORDERED: SENNOSIDES 8.6 MG TAB PO PRN (21:00)
[2017-01-16] MEDS ORDERED: MAGNESIUM HYDROXIDE SUSP 30 ML CUP PO PRN (21:00)
[2017-01-17 03:57] VITALS: BP 143/63; PULSE 68; RESP 19; TEMP 98.9; O2SAT 92
[2017-01-17] MEDS: DEXT 5%-NACL 0.45% 1000 ML INJ 1,000 ML IV SCH ×2 (04:00→12:00)
[2017-01-17] MEDS: ACETAMINOPHEN/HYDROcodone 325 MG/5 MG TAB PO PRN ×3 (06:50→14:09)
[2017-01-17 07:47] VITALS: BP 107/63; PULSE 66; RESP 19; TEMP 98.5; O2SAT 92
--- NOTE | 2017-01-17 08:36 | HHI.FPPN ---
Subjective Remarks Patient feeling well and ready to go home. He plans to follow up with Dr. Henning in one month and Dr. Stallings in one week. UOP decreased after surgery but improving back to baseline (has BPH). No other complaints. (Mary Islas MD R2) Objective Vitals Vital Signs Date Time Temp Pulse Resp B/P (MAP) Pulse Ox O2 Delivery O2 Flow Rate FiO2 01/17/17 07:47 98.5 66 19 107/63 (78) 92 01/17/17 03:57 98.9 68 19 143/63 (89) 92 01/17/17 00:10 18 01/16/17 23:14 98.3 77 18 116/56 (76) 92 01/16/17 21:23 92 Nasal Cannula 4.00 01/16/17 20:00 Nasal Cannula 2.00 01/16/17 19:14 98.5 71 18 121/55 (77) 96 01/16/17 15:27 97.7 76 16 122/65 (84) 95 01/16/17 15:06 97.9 85 17 133/75 (94) 98 01/16/17 11:49 99.8 79 16 139/65 (89) 93 01/16/17 08:44 90 Nasal Cannula 2.00 I/O 01/16/17 01/16/17 01/16/17 01/17/17 01/17/17 01/17/17 07:00 15:00 23:00 07:00 15:00 23:00 Intake Total 2106 ml 1646 ml 480 ml 480 ml Output Total 350 ml Balance 1756 ml 1646 ml 480 ml 480 ml Intake Oral 240 ml 1440 ml 480 ml 480 ml IV Total 1866 ml 206 ml Output Urine Total 350 ml # Voids 5 4 4 # Bowel Movements 0 0 0 0 (Mary Islas MD R2) Result Diagram: 01/16/17 0808 Imaging Last Impressions Shoulder X-Ray 01/15/17 0000 Signed Impressions: Service Date/Time: Sunday, January 15, 2017 10:34 - CONCLUSION: No acute abnormality demonstrated status post left shoulder arthroplasty. Ricardo Irizarry MD Objective Remarks GENERAL: Well-nourished, well-developed patient who is in no apparent distress. Sling is noted to be on the left arm. SKIN: Warm and dry. No rashes present. HEAD: Normocephalic, atraumatic. EYES: No scleral icterus. No injection or drainage. Extraocular movements intact. NECK: Trachea midline. No obvious meningeal signs. RESPIRATORY: No increased work of breathing. No accessory muscle use. GASTROINTESTINAL: Abdomen obese. Nondistended. MUSCULOSKELETAL: No cyanosis or edema. NEURO: Cranial nerves II through XII grossly intact. No obvious focal neurologic deficits. Moves all extremities well. Normal gait. PSYCH: Normal mood and affect. Good eye contact. Good insight and judgment. Normal speech. Medications and IVs Inpatient Medications Acetaminophen/ Hydrocodone Bitart ([place] 5-325 Mg) 2 tab Q4H PRN PO PAIN SCALE 5 TO 10; Start 01/15/17 at 10:15 Albuterol/ Ipratropium (Duoneb Neb) 1 ampule Q6HR WHILE AWAKE NEB NEB Last administered on 01/17/17 08:46; Start 01/16/17 at 00:15 Bisacodyl (Dulcolax Supp) 10 mg DAILY PRN RECTAL SEVERE CONSITIPATION; Start 01/16/17 at 09:30 Cefazolin Sodium 1000 mg/Sodium Chloride 100 ml @ 200 mls/hr Q6H IV Last administered on 01/15/17 23:11; Start 01/15/17 at 12:00; Stop 01/16/17 at 00 :29; Status DC Cefazolin Sodium/ Dextrose 50 ml @ 100 mls/hr AVIATION ORDNANCE OFFICER IV Last administered on 01/15/17 06:47; Start 01/15/17 at 05:45; Stop 01/15/17 at 11:23; Status DC Chlorhexidine Gluconate (Chlorhexidine 2% Cloth) 3 pack AVIATION ORDNANCE OFFICER PRN TOPICAL SEE LABEL COMMENTS Last administered on 01/15/17 05:30; Start 01/15/17 at 05: 45; Stop 01/18/17 at 05:44 Dextrose/Sodium Chloride 1,000 ml @ 125 mls/hr Q8H IV Last administered on 21:33; Start 01/15/17 at 12:00 Enalaprilat (Vasotec Inj) 1.25 mg Q6H PRN IV PUSH SBP> OR = 180, DBP> OR = 100 ; Start 01/15/17 at 18:15 Fluoxetine HCl (PROzac) 40 mg DAILY PO Last administered on 01/17/17 09:59; Start 01/16/17 at 09:00 Insulin Human Regular (NovoLIN R INJ) See Protocol Table ... AVIATION ORDNANCE OFFICER PRN SQ SEE PROTOCOL TABLE; Start 01/15/17 at 05:45; Stop 01/18/17 at 05:44 Lactated Ringer's 1,000 ml @ 30 mls/hr Q24H PRN IV SEE LABEL COMMENTS Last administered on 01/15/17 06:45; Start 01/15/17 at 05:45; Stop 01/15/17 at 11 :23; Status DC Lactulose (Lactulose Liq) 30 ml DAILY PRN PO SEVERE CONSITIPATION; Start 01/16 at 09:30 Magnesium Hydroxide (Milk Of Magnesia Liq) 30 ml Q12HR PRN PO Mild constipation ; Start 01/16/17 at 21:00 Metoprolol Tartrate (Lopressor) 50 mg BID PO Last administered on 01/17/17 09 :58; Start 01/15/17 at 21:00 Miscellaneous Information 1 DAILY T-DERMAL Last administered on 01/17/17 09: 00; Start 01/16/17 at 09:00 Miscellaneous Information (Post-op Orders (for Pharmacy)) STAT ONCE XX ; Start 01/15/17 at 09:56; Stop 01/15/17 at 11:18; Status DC Miscellaneous Medication ([facility] Information) ONCE ONCE XX ; Start at 10:15; Stop 01/15/17 at 11:18; Status DC Morphine Sulfate (Morphine 1 Mg/ ml SPECIAL EDUCATION PROFESSIONAL) 30 mg UNSCH IV Last administered on 12:18; Start 01/15/17 at 10:15; Stop 01/17/17 at 10:14; Status DC Naloxone HCl (Narcan Inj) 0.4 mg UNSCH PRN IV PUSH RESPIRATORY RATE LESS THAN 10; Start 01/15/17 at 10:15; Stop 01/17/17 at 10:14; Status DC Nicotine (Habitrol 14 Mg Patch.24 Hr) 1 patch DAILY T-DERMAL Last administered on 01/17/17 09:59; Start 01/15/17 at 20:00 Ondansetron HCl (Zofran Inj) 4 mg Q6H PRN IVP NAUSEA OR VOMITING; Start at 10:15 Pantoprazole Sodium (Protonix) 40 mg DAILY PO Last administered on 01/17/17 09:58; Start 01/16/17 at 09:00 Patient Own Medication PT OWN MED: (Clobeta... BID PO ; Start 01/15/17 at 21:00 ; Status Future Hold SPECIAL EDUCATION PROFESSIONAL Dosage Infused (Pha) 1 Q8HR .XX Last administered on 01/16/17 06:00; Start 01/15/17 at 14:00; Stop 01/16/17 at 10:14; Status DC Povidone Iodine (Betadine 5% Antisepsis Kit) 1 applic [employer]IATION [employer]DNANCE OFFICER PRN EACH NARE SEE LABEL COMMENTS Last administered on 01/15/17 06:00; Start 01/15/17 at 05: 45; Stop 01/18/17 at 05:44 Povidone Iodine (Betadine 7.5% Scrub) 1 applic ONCE TOPICAL ; Start 01/15/17 at 05:45; Stop 01/18/17 at 05:44 Rivaroxaban (Xarelto) 10 mg Q24H PO Last administered on 01/17/17 09:59; Start 01/16/17 at 09:00 Senna/Docusate Sodium (Patricia-Colace) 1 tab BID PO Last administered on 09:58; Start 01/16/17 at 11:00 Sennosides (Senokot) 17.2 mg Q12HR PRN PO Moderate constipation; Start at 21:00 Sodium Chloride (NS Flush) 2 ml BID IV FLUSH Last administered on 01/17/17 10 :07; Start 01/15/17 at 21:00 Terazosin HCl (Hytrin) 4 mg DAILY PO Last administered on 01/17/17 09:58; Start 01/16/17 at 09:00 Tranexamic Acid 1000 mg/Sodium Chloride 110 ml @ 200 mls/hr UNSCH IV ; Start 01/15/17 at 10:15; Stop 01/15/17 at 11:19; Status DC Zolpidem Tartrate (Ambien) 5 mg HS PRN PO SLEEP; Start 01/15/17 at 10:15 (Mary Islas MD R2) Urinary Catheter: No (Mary Islas MD R2) Vascular Central Line Catheter: No (Mary Islas MD R2) A/P Assessment and Plan Patient is a 66-year-old male with significant PMHx of depression, HTN, HLD who came to the hospital for elective surgery (complete rotator cuff tear repair of the left shoulder). Patient is s/p Left reverse shoulder arthroplasty by Dr. Henning. Pain is well controlled. VS WNL. S/p Left reverse shoulder arthroplasty -Being managed by Dr. Henning -IV SPECIAL EDUCATION PROFESSIONAL and norco po Q4h PRN for pain Patient had 1 episode of vomiting after first meal , not recurrent -c/w zofran 4mg IV Q6h PRN Patient mentioned slight straining with urination can be likely due to morphine medication given for pain -Urine output within normal limits -To follow-up with PCP Dr. Stallings for further evaluation if needed; is noted he is on terazosin Slight wheezing noted on Right upper lobe on exam -order placed for duoneb Q6h to be given while awake Discharge Planning Discharge to home January 17, 2017 (Mary Islas MD R2) Attending Attestation Patient seen and examined. Case reviewed and discussed with the resident team. Agree with plan of care as discussed with me and documented in the resident note. (Shabana Willis MD) Problem List: (1) Hypertension ICD Codes: I10 - Hypertension Status: Chronic Plan: -c/w metoprolol 50mg po BID (2) Depression ICD Codes: F32.9 - Depression Status: Chronic Plan: -c/w fluoxetine 40mg po QD (3) GERD (gastroesophageal reflux disease) ICD Codes: K21.9 - Gastroesophageal reflux disease Status: Chronic Plan: -c/w pantoprazole 40mg po QD (4) Tobacco abuse ICD Codes: Z72.0 - Tobacco use Status: Chronic Plan: -c/w nicotine patch -Encouraged use of incentive spirometer 10 times an hour while awake and he was taught in its use. -Encourage smoking cessation (5) Nutrition, metabolism, and development symptoms ICD Codes: R63.8 - Other symptoms and signs concerning food and fluid intake Plan: FluidsPo hydration Electrolytes: replete as needed DVT ppx: xarelto mg Q24h starting 01/16 GI ppx: pantoprazole 40mg QD (Mary Islas MD R2) Problem Qualifiers (1) Hypertension: Qualified Codes: I10 - Essential (primary) hypertension Mary Islas MD R2 Jan 17, 2017 08:36 Shabana Willis MD Jan 17, 2017 11:25
[2017-01-17] MEDS: RESP: ALBUTEROL 2.5 MG/IPRATROPIUM 0.5 MG NEB (SCH) NEB ×2 (08:46→12:23)
[2017-01-17 08:48] VITALS: O2SAT 90
[2017-01-17] MEDS: REMOVE OLD PATCH T-DERMAL SCH (09:00)
[2017-01-17] MEDS: DOCUSATE SODIUM 50 MG/SENNA 8.6 MG TAB PO SCH (09:58)
[2017-01-17] MEDS: TERAZOSIN HCL 1 MG CAP PO SCH (09:58)
[2017-01-17] MEDS: METOPROLOL TARTRATE 50 MG TAB PO SCH (09:58)
[2017-01-17] MEDS: PANTOPRAZOLE SOD 40 MG DELAYED RELEASE TAB PO SCH (09:58)
[2017-01-17] MEDS: RIVAROXABAN 10 MG TAB PO SCH (09:59)
[2017-01-17] MEDS: NICOTINE 14 MG/24 HR PATCH T-DERMAL SCH (09:59)
[2017-01-17] MEDS: FLUoxetine HCL 20 MG CAP PO SCH (09:59)
[2017-01-17] MEDS: SODIUM CHLORIDE 0.9% FLUSH 10 ML FLUSH IV FLUSH SCH (10:07)
[2017-01-17 11:42] VITALS: BP 115/66; PULSE 77; RESP 19; TEMP 99.2; O2SAT 93
--- NOTE | 2017-01-18 22:03 | MD ---
cc: NISHA MARRUFO MD, NORMAN B. M.D. ADMISSION DATE: 01/15/2017 DISCHARGE DATE: 01/17/2017 ADMISSION DIAGNOSIS: Complete rotator cuff tear of the left shoulder with glenohumeral arthrosis, acromioclavicular arthrosis, effusion left shoulder and pain of the left shoulder DISCHARGE DIAGNOSIS: Complete rotator cuff tear of the left shoulder with glenohumeral arthrosis, acromioclavicular arthrosis, effusion left shoulder and pain of the left shoulder. BRIEF HISTORY: A 66-year-old white male with pain of the left shoulder of at least six months duration. He associated the onset of his symptoms with a lifting type stress when he was picking up luggage and noted a popping sensation about the shoulder area with the onset of pain. He initially conformed to conservative management but noted lingering discomfort thereafter that was exacerbated several weeks later when he fell out of bed sustaining blunt trauma to the shoulder area. He utilized a topical agent with minimal benefit being noted and was later evaluated at the [facility] where x-ray studies were without evidence of an acute bony abnormality. Mild degenerative changes of the JACKLYN and glenohumeral joint were reported. The patient was prescribed physical therapy that he attended on a routine basis without any appreciable benefit of his pain being noted. He also underwent ultrasound evaluation of his left arm with findings identifying a dislocation of the long head of the biceps tendon that was felt to be indicative of a partial subscapularis tear. The remaining portion of the cuff was described as being intact. He later underwent an orthopedic evaluation with a subsequent MRI scan of the left shoulder identifying a full-thickness distal supraspinatus tear measuring approximately 2.7 cm in medial to lateral dimension and 1.7 cm in anterior to posterior dimension, moderately severe distal infraspinatus and subscapularis tendinosis with severe proximal biceps tendinosis and moderately severe acromioclavicular joint arthrosis and a moderate sized glenohumeral joint effusion communicating with the subacromial bursa. There was a large tear involving the superior, posterior and inferior aspects of the labrum. The patient presented to the undersigned physician for second opinion evaluation, and at that time reported ongoing pain about his left shoulder with limited mobility that was interfering with all activities of daily living. He had been taking ibuprofen in the past that he found to be quite beneficial but had to discontinue his medication secondary to gastroesophageal reflux disease syndrome. He also recently began taking tumeric that he found to be of some benefit with regards to pain relief about the shoulder area. Findings and treatment options were reviewed with the patient at that time, the pros and cons of continuing with conservative management versus operative intervention that would involve an acromioplasty of the left shoulder with an attempted mini open rotator cuff repair versus reverse shoulder arthroplasty were outlined in detail. The pluses and minuses of each procedure were reviewed. The patient indicated that prior to his office evaluation, he had an independent research on the internet and was inclined to consider reverse shoulder arthroplasty as being the more favorable course of treatment for long-term benefit and expressed his desire to proceed accordingly. In compliance with his wishes, he was currently scheduled for admission in order that the above be accomplished. He is right hand dominant. PHYSICAL EXAMINATION: His physical examination at the time of admission revealed mild tenderness about the anterior aspect of the shoulder directly overlying the bicipital groove. There was no palpable deformity. Limited mobility of the shoulder as the patient actively attempted to elevate his hand above his head level in a forward orientation which was accomplished to more than 60 degrees internal rotation to the lumbosacral junction. Cross-arm positioning of left hand onto right shoulder unremarkable. There was no sensation of crepitation about the glenohumeral joint. Drop arm test positive. French sign positive weakness of both internal and external rotation. Kindergarten Assistant strength intact. Sensory intact. HOSPITAL COURSE: Prior to admission to the hospital, the patient had undergone medical evaluation and clearance for surgery as completed by his primary care physician, Dr. Kolton Marrufo. He was taken to the operating room on 15 January 2017, and on that date underwent a left reverse shoulder arthroplasty completed in an uncomplicated manner. The patient was noted to have tolerated his operative procedure well and his postoperative course stable thereafter. Hemoglobin/hematocrit assessment postoperatively was 14.7 and 43.9, respectively. The patient was progressively mobilized under the guidance of physical therapy with instructions regarding limited external rotation to no more than 45 degrees for the initial six weeks following surgery. senior manager creative services was consulted to assist with discharge planning. Follow up examination of his surgical wound noted it to be intact and healing favorably with no evidence of infection. Medical followup per the hospitalist service. DVT prophylaxis initiated. senior manager creative services was consulted to assist with discharge planning. The patient had expressed his desire to be discharged home and continue his rehabilitation on an outpatient basis. Plans were finalized in this regard and pending medical clearance he was scheduled for discharge on the second postoperative day at which time he was noted making favorable progress with regards to his initial rehab. He was scheduled to be seen in office followup in approximately four weeks. His condition at the time of discharge was stable and his prognosis favorable. DISCHARGE MEDICATIONS: 1. Hydrocodone 5 / 325 #60. 2. Xarelto 10 milligrams #15. Jose Henning MD NBS/JCC /6:38 AM /9:47 PM
== END 2017-01-17 16:00 | disposition home health service (06) | DRG 483 ==
LOC: HSDI 05:13 → N06B 12:46
PROVIDERS: ADMIT Orthopaedic Surgery; ATTEND Orthopaedic Surgery
PROC: 0RRK00Z Replacement of Left Shoulder Joint with Reverse Ball and Socket Synthetic Substitute, Open Approach (ICD-10-PCS; principal; 2017-01-15 06:48)
DX: M19.012 Primary osteoarthritis, left shoulder (principal); I10 Essential (primary) hypertension; F32.9 Major depressive disorder, single episode, unspecified; K21.9 Gastro-esophageal reflux disease without esophagitis; M75.122 Complete rotator cuff tear or rupture of left shoulder, not specified as traumatic; L71.9 Rosacea, unspecified; E78.5 Hyperlipidemia, unspecified; H04.123 Dry eye syndrome of bilateral lacrimal glands; M10.9 Gout, unspecified; L40.9 Psoriasis, unspecified; E66.9 Obesity, unspecified; Z68.34 Body mass index [BMI] 34.0-34.9, adult; K22.70 Barrett's esophagus without dysplasia; F17.210 Nicotine dependence, cigarettes, uncomplicated; N40.0 Benign prostatic hyperplasia without lower urinary tract symptoms; J43.9 Emphysema, unspecified
CPT/HCPCS: 73020; 85014; 85018; 88305; 88311; 94150; 94640; 94664; J0131; J0690; J2270; J7120